=== PATIENT | female | born 1990 | race Caucasian/White ===

== ENCOUNTER → 2018-07-27 11:10 | Outpatient (CLI) | payer BC, SELFPAY ==
[2018-07-27 15:33] LABS: Chlamydia Trachomatis by PCR Negative (Negative); Neisserai gonorrhoeae by PCR Negative (Negative)
[2018-07-27 15:34] LABS: Probe Check PASS; Sample Adequacy Control PASS; Specimen Processing Control PASS
[2018-07-29 13:47] LABS: HPV Reflexed? NOT INDICATED
== END ==
PROVIDERS: Visit Provider Obstetrics & Gynecology
DX: Z12.4 Encounter for screening for malignant neoplasm of cervix (principal); Z11.3 Encounter for screening for infections with a predominantly sexual mode of transmission
CPT/HCPCS: 87491; 87591; 88175; G0145

== ENCOUNTER → 2018-08-10 11:35 | Outpatient (CLI) | payer BC, SELFPAY ==
[2018-08-10 12:11] LABS: Absolute Lymphocyte Count 2.18 X10^3/ul (0.83-4.51); Absolute Neutrophil Count 6.4 X10^3/uL (2.0-7.7); Basophil# 0.01 X10^3/uL; Basophil% 0.1 % (0-1); Eosinophil# 0.08 X10^3/uL; Eosinophils% 0.8 % (0-5); Hematocrit 36.8 % (37-47); Hemoglobin 12.7 g/dl (12.0-15.0); Lymphocyte # 2.18 X10^3/ul (4.0); Mean Corp Hgb Conc 34.5 g/gl (32-36); Mean Corpuscular Hgb 30.5 pg (27.0-32.0); Mean Corpuscular Volume 88.5 fL (81-99); Mean Platelet Vol. 9.5 fl (6.2-12.0); Monocyte# 0.83 X10^3/uL; Monocyte% 8.7 % (0-10); Neutrophil # 6.38 X10^3/uL (2.7-7.7); Neutrophil % 67.3 % (47-70); Platelet Count 175 K/mm3 (150-450); RBC Distribution Width CV 12.5 % (11.6-14.6); RBC Distribution Width SD 40.3 fl (35.1-43.9); Red Blood Count 4.16 M/mm3 (4.2-5.4); White Blood Count 9.5 K/mm3 (4.4-11.0)
[2018-08-10 12:13] LABS: POSITIVE COUNT NO; POSITIVE DIFFERENTIAL NO; POSITIVE MORPHOLOGY NO
[2018-08-10 12:49] LABS: Thyroid Stim Hormone (TSH) 0.76 uIU/mL (0.358-3.74)
[2018-08-10 13:27] LABS: HIV - WCH Non-Reactive (Nonreactive)
[2018-08-10 13:37] LABS: Color, Urine Yellow (Yellow); Glucose, Dipstick Normal (Normal); Ketone-Dipstick Negative (Negative); Leukocyte Esterase-Dipstick 100 /ul (Negative); Nitrite-Dipstick Negative (Negative); Occult Blood-Urine 10 /ul (Negative); Protein-Dipstick 15 mg/dl (Negative); Urine Bilirubin Dipstick Negative (Negative); Urine Clarity Sl. Cloudy (Clear); Urine Urobilinogen Normal (Normal)
[2018-08-10 13:43] LABS: COTININE Drug Screen Negative (<200 ng/mL)
[2018-08-10 13:50] LABS: Amphetamine Urine VISTA NEGATIVE (<1000 ng/mL); Barbiturate Urine VISTA NEGATIVE (< 200 ng/mL); Benzodiazepine Urine VISTA NEGATIVE (< 200 ng/mL); Cocaine Urine VISTA NEGATIVE (< 300 ng/mL); Ecstacy Urine VISTA NEGATIVE (< 500 ng/mL); Methadone Urine VISTA NEGATIVE (< 300 ng/mL); PCP Urine VISTA NEGATIVE (< 25 ng/mL); THC Urine VISTA NEGATIVE (< 50 ng/mL); Vista UDS pH Range 5
[2018-08-11 10:53] LABS: HEPATITIS B SURFACE AG Negative (Negative); Hep C Antibodies <0.1 s/co ratio (0.0-0.9)
[2018-08-14 01:58] LABS: Prenatal RPR NONREACTIVE (NONREACTIVE)
== END ==
PROVIDERS: Visit Provider Obstetrics & Gynecology
DX: Z34.81 Encounter for supervision of other normal pregnancy, first trimester (principal)
CPT/HCPCS: 36415; 80307; 81002; 84443; 85025; 86703; 86762; 86803; 87340

== ENCOUNTER → 2018-12-22 11:17 | Outpatient (CLI) | payer BC, SELFPAY ==
[2018-12-22 13:41] LABS: Hematocrit 34.4 % (37-47); Hemoglobin 11.6 g/dl (12.0-15.0); Mean Corp Hgb Conc 33.7 g/gl (32-36); Mean Corpuscular Hgb 30.9 pg (27.0-32.0); Mean Corpuscular Volume 91.5 fL (81-99); Mean Platelet Vol. 9.6 fl (6.2-12.0); Platelet Count 172 K/mm3 (150-450); Red Blood Count 3.76 M/mm3 (4.2-5.4); White Blood Count 11.4 K/mm3 (4.4-11.0)
[2018-12-22 13:42] LABS: Scan Indicated on CBC? Y/N NO
[2018-12-22 14:00] LABS: Glucose Challenge Gest 1H 50g 142 mg/dL (70-140)
== END ==
PROVIDERS: Visit Provider Obstetrics & Gynecology
DX: Z34.83 Encounter for supervision of other normal pregnancy, third trimester (principal)
CPT/HCPCS: 36415; 82950; 85027; 86850

== ENCOUNTER → 2018-12-24 06:48 | Outpatient (CLI) | payer BC, SELFPAY ==
[2018-12-24 08:09] LABS: Glucose GTT-Gestation. Fasting 75 mg/dL (<105)
[2018-12-24 09:15] LABS: Glucose GTT-Gestational 1 Hr 121 mg/dL (<190)
[2018-12-24 10:29] LABS: Glucose GTT-Gestational 2 Hr 106 mg/dL (<165)
[2018-12-24 11:03] LABS: Glucose GTT-Gestational 3 Hr 82 L (<145)
== END ==
PROVIDERS: Referring Provider Obstetrics & Gynecology; Visit Provider Obstetrics & Gynecology
DX: O99.810 Abnormal glucose complicating pregnancy (principal); Z3A.00 Weeks of gestation of pregnancy not specified
CPT/HCPCS: 36415; 82951; 82952

== ENCOUNTER → 2019-02-17 14:00 | Outpatient (CLI) | payer BC, SELFPAY | PROVIDERS: Visit Provider Obstetrics & Gynecology | DX: Z34.83 Encounter for supervision of other normal pregnancy, third trimester (principal); Z36.85 Encounter for antenatal screening for Streptococcus B | CPT/HCPCS: 87081 ==

== ENCOUNTER 2019-03-12 03:12 | Inpatient (IN) | payer BC, SELFPAY ==
[2019-03-12 00:38] VITALS: BMI 34.3
[2019-03-12] MEDS: Lactated Ringers 1,000 ML 50 ML IV ×4 (03:37→14:31)
[2019-03-12 03:57] LABS: Absolute Lymphocyte Count 3.07 X10^3/ul (0.83-4.51); Absolute Neutrophil Count 12.6 X10^3/uL (2.0-7.7); Basophil# 0.02 X10^3/uL; Basophil% 0.1 % (0-1); Eosinophil# 0.14 X10^3/uL; Eosinophils% 0.8 % (0-5); Hematocrit 33.7 % (37-47); Hemoglobin 11.6 g/dl (12.0-15.0); Lymphocyte # 3.07 X10^3/ul (4.0); Lymphocyte % 17.5 % (19-41); Mean Corp Hgb Conc 34.4 g/gl (32-36); Mean Corpuscular Hgb 30.3 pg (27.0-32.0); Mean Platelet Vol. 10.3 fl (6.2-12.0); Monocyte# 1.61 X10^3/uL; Monocyte% 9.2 % (0-10); Neutrophil # 12.57 X10^3/uL (2.7-7.7); Neutrophil % 71.5 % (47-70); Platelet Count 173 K/mm3 (150-450); RBC Distribution Width CV 13.2 % (11.6-14.6); RBC Distribution Width SD 40.3 fl (35.1-43.9); Red Blood Count 3.83 M/mm3 (4.2-5.4); White Blood Count 17.6 K/mm3 (4.4-11.0)
[2019-03-12] MEDS: Nalbuphine 10 MG/ML Ampul IV ×2 (03:57→07:05)
--- NOTE | 2019-03-12 03:59 | HP.PCM_ITS ---
History and Physical Date of Admission: 03/12/19 OB HISTORY AND PHYSICAL EXAMINATION History of this : 28 yo female Ab0 with EDC 03/13/2019 by Ultrasound, presents to Labor and Delivery at 39 6/7 wk with CC of [facility]. . care remarkable for - 1.) Abnormal glucola -- 3 hr GTT wnl. 2.) Severe heartburn 3.) O NEG Pertinent Past Medical History: Negative. Allergies: No Known Allergies Medications: During - Vitamin tablet; Prilosec OTC 20 mg tablet,delayed release Review of Systems: Contractions PHYSICAL EXAMINATION General Appearence: 28 yo female in no acute distress Vital Signs: AF, VSS Heart: RRR without rubs or gallops Lungs: CTA x 2 Breasts: deferred Abdomen: gravid Pelvis: Cervix: 3-4 / 75/ -3 Presentation: cephalic Station: Fetus: Size: AGA Movement: present Heart: 120s with min to avg variability and small accels. UCs q 5-7 mins Impression /Plan: Intrauterine . 39 /67 wk EGA presents in early laobr. requesting pain meds. Admit. Offer epidural, nitrous, IV narcotic prn for pain. Anticipate vaginal delivery. BP slightly high PIH labs to be drawn. See Progress Notes for Changes: Physician's Signature: Date:
[2019-03-12 04:00] LABS: Differential Indicated SCAN CRITERIA MET; POSITIVE COUNT NO; POSITIVE DIFFERENTIAL YES; POSITIVE MORPHOLOGY NO
[2019-03-12 04:05] LABS: Prothrombin Time (Protime)PT. 13.3 SECONDS (11.7-14.9)
[2019-03-12 04:06] LABS: Partial Thromboplast Time 26.7 Seconds (24.1-36.2)
[2019-03-12 04:09] LABS: AST(SGOT) 30 U/L (15-37); Alanine Aminotransfer ALT/SGPT 30 U/L (13-56); Creatinine, Serum 0.74 mg/dL (0.55-1.02); EST Glomerular Filtration Rate 98 mL/min (>60); Est Glom Filt Rate - Afr Amer 119 mL/min (>60); Estimated Creatinine Clearance 96.86 ml/min; Uric Acid 6.4 mg/dL (2.6-6.0)
[2019-03-12 04:25] LABS: Differential Comment SCANNED
--- NOTE | 2019-03-12 04:55 | OB.TRI.PN_ITS ---
Progress Notes Date of Service: 03/12/19 Progress Note: [facility] labs reviewed. Frontal DEE. Tylenol for DEE Begin Pitocin prn for augmentation of labor. Prot/Cr ratio to be sent. Laboratory Studies: Laboratory Tests 03/12/19 03/12/19 03/12/19 Range/Units 03:34 03:34 03:34 WBC 17.6 H (4.4-11.0) K/mm3 RBC 3.83 L (4.2-5.4) M/mm3 Hgb 11.6 L (12.0-15.0) g/dl Hct 33.7 L (37-47) % MCV 88.0 (81-99) fL MCH 30.3 (27.0-32.0) pg MCHC 34.4 (32-36) g/gl RDW 13.2 (11.6-14.6) % RDW Differential 40.3 (35.1-43.9) fl Plt Count 173 (150-450) K/mm3 MPV 10.3 (6.2-12.0) fl Immature Gran % (Auto) 0.900 (0.0-0.9) % Neut % (Auto) 71.5 H (47-70) % Lymph % (Auto) 17.5 L (19-41) % [place] % (Auto) 9.2 (0-10) % Eos % (Auto) 0.8 (0-5) % Baso % (Auto) 0.1 (0-1) % Absolute Neuts (auto) 12.6 H (2.0-7.7) X10^3/uL Absolute Lymphs (auto) 3.07 (0.83-4.51) X10^3/ul Total Counted Not Reportable Differential Comment SCANNED PT 13.3 (11.7-14.9) SECONDS INR 1.0 APTT 26.7 (24.1-36.2) Seconds Creatinine 0.74 (0.55-1.02) mg/dL Estim Creat Clear Calc 96.86 ml/min Est GFR (MDRD) Af Amer 119 (>60) mL/min Est GFR (MDRD) Non-Af 98 (>60) mL/min Uric Acid 6.4 H (2.6-6.0) mg/dL AST 30 (15-37) U/L ALT 30 (13-56) U/L
[2019-03-12 05:25] LABS: Protein, Urine (Random) 23.1 mg/dL (<11.9); Protein:Creat Ratio 171 mg/g CRE (0-200)
--- NOTE | 2019-03-12 06:11 | OB.TRI.PN_ITS ---
Progress Notes Date of Service: 03/12/19 Progress Note: LABOR PROGRESS NOTE 39 6/7 labor Uncomfortable and requesting something for pain. Nubain not due. she is not sure what she wants to do for pain. Declines epidural for now. OK with nitrous oxide AVSS BP slightly elevated EFM 120s avg variability Small Accels noted. UCs poor metal pickling equipment operator. Breathing through these CX: last checked at 0515 per RN. 5.5/80/-2 IBOW A/P: 39 6/7 wk labor. Progress noted from admission 3-4 cm. Pitocin not needed at this point. Continue labor. Reviewed options for pain relief in labor. Plans trial of nitrous next. Laboratory Studies: Laboratory Tests 3 03/12/19 03/12/19 03/12/19 Range/Units 05:05 04:15 03:34 WBC (4.4-11.0) K/mm3 RBC (4.2-5.4) M/mm3 Hgb (12.0-15.0) g/dl Hct (37-47) % MCV (81-99) fL MCH (27.0-32.0) pg MCHC (32-36) g/gl RDW (11.6-14.6) % RDW Differential (35.1-43.9) fl Plt Count (150-450) K/mm3 MPV (6.2-12.0) fl Immature Gran % (Auto) (0.0-0.9) % Neut % (Auto) (47-70) % Lymph % (Auto) (19-41) % [place] % (Auto) (0-10) % Eos % (Auto) (0-5) % Baso % (Auto) (0-1) % Absolute Neuts (auto) (2.0-7.7) X10^3/uL Absolute Lymphs (auto) (0.83-4.51) X10^3/ul Total Counted Differential Comment PT (11.7-14.9) SECONDS INR APTT (24.1-36.2) Seconds Creatinine 0.74 (0.55-1.02) mg/dL Estim Creat Clear Calc 96.86 ml/min Est GFR (MDRD) Af Amer 119 (>60) mL/min Est GFR (MDRD) Non-Af 98 (>60) mL/min Uric Acid 6.4 H (2.6-6.0) mg/dL AST 30 (15-37) U/L ALT 30 (13-56) U/L U Random Total Protein 23.1 H (<11.9) mg/dL Urine Creatinine 135.00 (NO RANGE EST.) mg/dL Protein/Creatinin Ratio 171 (0-200) mg/g CRE Blood Type O NEGATIVE Antibody Screen NEGATIVE 03/12/19 03/12/19 Range/Units 03:34 03:34 WBC 17.6 H (4.4-11.0) K/mm3 RBC 3.83 L (4.2-5.4) M/mm3 Hgb 11.6 L (12.0-15.0) g/dl Hct 33.7 L (37-47) % MCV 88.0 (81-99) fL MCH 30.3 (27.0-32.0) pg MCHC 34.4 (32-36) g/gl RDW 13.2 (11.6-14.6) % RDW Differential 40.3 (35.1-43.9) fl Plt Count 173 (150-450) K/mm3 MPV 10.3 (6.2-12.0) fl Immature Gran % (Auto) 0.900 (0.0-0.9) % Neut % (Auto) 71.5 H (47-70) % Lymph % (Auto) 17.5 L (19-41) % [place] % (Auto) 9.2 (0-10) % Eos % (Auto) 0.8 (0-5) % Baso % (Auto) 0.1 (0-1) % Absolute Neuts (auto) 12.6 H (2.0-7.7) X10^3/uL Absolute Lymphs (auto) 3.07 (0.83-4.51) X10^3/ul Total Counted Not Reportable Differential Comment SCANNED PT 13.3 (11.7-14.9) SECONDS INR 1.0 APTT 26.7 (24.1-36.2) Seconds Creatinine (0.55-1.02) mg/dL Estim Creat Clear Calc ml/min Est GFR (MDRD) Af Amer (>60) mL/min Est GFR (MDRD) Non-Af (>60) mL/min Uric Acid (2.6-6.0) mg/dL AST (15-37) U/L ALT (13-56) U/L U Random Total Protein (<11.9) mg/dL Urine Creatinine (NO RANGE EST.) mg/dL Protein/Creatinin Ratio (0-200) mg/g CRE Blood Type Antibody Screen
[2019-03-12] MEDS: Acetaminophen 325 MG Tablet PO ×2 (06:39→14:42)
[2019-03-12] MEDS: Ondansetron 4 MG/2 ML Vial IV (08:46)
[2019-03-12] MEDS: fentaNYL-bupivacaine (epidural) 100 ML BAG EPIDURAL ×2 (09:20→14:10)
[2019-03-12] MEDS: Oxytocin 30 units/NS 500 ml 30 UNITS/500 ML IV.SOLN 334 UNITS IV (15:31)
--- NOTE | 2019-03-12 15:42 | PCM.OPRPT ---
Vaginal Delivery Maternal Presentation: Active Labor Method of Induction: Amniotomy Amniotic Membrane Rupture Type: Artificial Amniotic Fluid Description: Moderate meconium Final MOSHE: 03/13/19 Final MOSHE Source: US <20 weeks Gestational age: 39 Weeks and 6 Days doctor who attended delivery (if requested by OB): Cosme Borrego - Moderate MSF Date of Procedure: 03/12/19 Pre-Operative Diagnosis: IUP Post-Operative Diagnosis: IUP Surgery/ Procedure Performed: Spontaneous Vaginal Delivery Type of Anesthesia: Epidural Description of Procedure: Spontaneous vaginal delivery of a viable female infant with Apgars of 8/9 from an occiput anterior presentation with moderately thick meconium fluid and moderately stained placental membranes with a three-vessel umbilical cord. No episiotomy. First-degree midline laceration repaired with 3-0 Rapide suture under epidural. Sponges okay. Delivery physician: Brandon Adams MD. Presentation: Vertex Placental Delivery Description: Spontaneous Placenta Disposition: [facility] Cord Vessel Description: 3 Vessels Cord Gases drawn per routine: ABG Cord Entanglement: None Estimated Blood Loss: 250 cc A gender: Female (1 minute): 8 (5 minute): 9 Episiotomy Description: None Laceration: Midline, 1st degree Medications given after delivery: IV Pitocin Complications: None
[2019-03-12] MEDS: Oxytocin 30 units/NS 500 ml 30 UNITS/500 ML IV.SOLN 167 UNITS IV (16:01)
[2019-03-12] MEDS: 0.9% Saline Lock 10 ML Syringe IV (17:21)
[2019-03-12 20:03] VITALS: BP 125/65; PULSE 64; RESP 16; TEMP 37.2; O2SAT 97
[2019-03-13 02:00] VITALS: BP 119/68; PULSE 96; RESP 18; TEMP 37.2; O2SAT 98
[2019-03-13 03:59] VITALS: BP 123/65; PULSE 89; RESP 18; TEMP 36.9; O2SAT 96
[2019-03-13] MEDS: Ibuprofen 600 MG Tablet PO ×3 (04:12→22:18)
[2019-03-13 07:30] VITALS: BP 120/60; PULSE 78; RESP 16; TEMP 36.4
[2019-03-13] MEDS: Acetaminophen 500 MG Tablet 1000 MG PO (07:50)
--- NOTE | 2019-03-13 10:14 | PN.OBGYN_ITS ---
Subjective: Patient without complaints. Getting instruction on breast-feeding. Minimal vaginal bleeding. Wants to go home later today if baby is able to be d ischarged. - Physical Exam Vital Signs Temp Pulse Resp BP Pulse Ox 97.6 F L 78 16 120/60 96 03/13/19 07:30 03/13/19 07:30 03/13/19 07:30 03/13/19 07:30 03/13/19 03:59 Oxygen Delivery Method Room Air Weight: 200 lb Body Mass Index (BMI) 34.3 Intake and Output for Last 24 Hours 03/11/19 03/12/19 03/13/19 23:59 23:59 23:59 Intake Total 3092 / 3092 Output Total 1050 / 1050 Balance 2041 / 2041 Laboratory Tests Past 24 Hrs 03/12/19 18:15 Screen NEGATIVE Baby's Blood Type A POSITIVE Baby's LEIF NEGATIVE Medical Necessity - Tobacco Use Smoking Status: Never smoker Assessment/Plan Doing well day #1 status post routine spontaneous vaginal delivery. Will discharge to home if baby is able to be discharged.
[2019-03-13 12:50] VITALS: BP 106/67; PULSE 68; RESP 18; TEMP 36.2
[2019-03-13 15:45] VITALS: BP 116/67; PULSE 82; RESP 16; TEMP 36.3
[2019-03-13 20:00] VITALS: BP 116/72; PULSE 74; RESP 17; TEMP 36.6
[2019-03-14] VITALS: PULSE 84; RESP 17
[2019-03-14 06:00] VITALS: PULSE 70; RESP 16
[2019-03-14 08:30] VITALS: BP 134/80; PULSE 78; RESP 18; TEMP 36.4
[2019-03-14] MEDS: Ibuprofen 600 MG Tablet PO (08:44)
--- NOTE | 2019-03-14 09:55 | PCM.PN.OB ---
Subjective: Patient without complaints. Breast-feeding going well. Ready to go home today. - Physical Exam Vital Signs Temp Pulse Resp BP Pulse Ox 97.9 F 70 16 116/72 96 03/13/19 20:00 03/14/19 06:00 03/14/19 06:00 03/13/19 20:00 03/13/19 03:59 Oxygen Delivery Method Room Air Weight: 200 lb Body Mass Index (BMI) 34.3 Intake and Output for Last 24 Hours 03/12/19 03/13/19 03/14/19 23:59 23:59 23:59 Intake Total 3092 / 3092 Output Total 1050 / 1050 Balance 2041 / 2041 Medical Necessity - Tobacco Use Smoking Status: Never smoker Assessment/Plan Doing well. Will release to home with routine instructions.
--- NOTE | 2019-03-14 11:19 | PCM.DCVAG ---
Discharge Diet: No Restrictions Discharge Activity: May Shower, May Take a Tub Bath May resume sexual activity in: 4-6 weeks Additional Activity Instructions:: Nothing in the vagina for 4-6 weeks. You may return to work/school in 6 weeks. Call your doctor if you observe: Fever of 101 or Higher, Inability to urinate, Inability to have a bowel movement, Using more than one pad per hour Additional Instructions: If you experience any of the following, contact your healthcare provider. Bleeding that soaks a pad every hour for 2 hours Fever 100.4 or higher Unrelieved incision or abdominal pain Swelling, redness, discharge or bleeding from your incision or episiotomy site Your incision begins to separate Problems urinating (including inability to urinate or burning while urinating). Visual changes Severe headache Flu-like symptoms Pain or redness in one of both of your breasts Pain, warmth, tenderness or swelling in your legs, especially the calf area Frequent nausea and vomiting Symptoms of depression or anxiety If you experience any of the following, call 911 or go to the nearest Emergency Room. Chest pain Problems breathing Seizure activity Partial or complete paralysis of a body part, slurred speech, weakness or drooping of the face, or a sudden inability to walk or hold your balance Allergies/Adverse Reactions: Allergies No Known Allergies Allergy (Verified 03/12/19 00:43) Medications to take at Discharge Omeprazole 1 tab PO DAILY 03/12/19 Prenatabs FA 1 tab PO DAILY 03/12/19 Vitamin D 1 tab PO DAILY 03/12/19 Please Follow Up With: Brandon Adams MD - [phone] When: Call to make an appointment with your doctor in 6 weeks. Primary Care Physician: Care Physician,No Primary [Primary Care Provider] - Test Results: Test results from this visit will be discussed in further detail at your follow-up appointment, if applicable.
--- NOTE | 2019-03-14 11:20 | DCINST_ITS ---
Discharge Diet: No Restrictions Discharge Activity: May Shower, May Take a Tub Bath May resume sexual activity in: 4-6 weeks Additional Activity Instructions:: Nothing in the vagina for 4-6 weeks. You may return to work/school in 6 weeks. Call your doctor if you observe: Fever of 101 or Higher, Inability to urinate, Inability to have a bowel movement, Using more than one pad per hour Additional Instructions: If you experience any of the following, contact your healthcare provider. * Bleeding that soaks a pad every hour for 2 hours * Fever 100.4 or higher * Unrelieved incision or abdominal pain * Swelling, redness, discharge or bleeding from your incision or episiotomy site * Your incision begins to separate * Problems urinating (including inability to urinate or burning while urinating). * Visual changes * Severe headache * Flu-like symptoms * Pain or redness in one of both of your breasts * Pain, warmth, tenderness or swelling in your legs, especially the calf area * Frequent nausea and vomiting * Symptoms of depression or anxiety If you experience any of the following, call 911 or go to the nearest Emergency Room. * Chest pain * Problems breathing * Seizure activity * Partial or complete paralysis of a body part, slurred speech, weakness or drooping of the face, or a sudden inability to walk or hold your balance Allergies/Adverse Reactions: Allergies No Known Allergies Allergy (Verified 03/12/19 00:43) Medications to take at Discharge Omeprazole 1 tab PO DAILY 03/12/19 Prenatabs FA 1 tab PO DAILY 03/12/19 Vitamin D 1 tab PO DAILY 03/12/19 Please Follow Up With: Brandon Adams MD - [phone] When: Call to make an appointment with your doctor in 6 weeks. Primary Care Physician: Care Physician,No Primary [Primary Care Provider] - Test Results: Test results from this visit will be discussed in further detail at your follow- up appointment, if applicable.
--- NOTE | 2019-03-16 09:32 | NURSING ---
Late entry/documentation of Delivery Record. Not completed day of delivery. 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 entry completed by A lala with testing tech assistance
== END 2019-03-14 12:25 | disposition home or self-care (01) | DRG 807 ==
LOC: WPOUT 03:14
PROVIDERS: Obstetrics & Gynecology; Admitting Provider Obstetrics & Gynecology; Referring Provider Obstetrics & Gynecology; Visit Provider Obstetrics & Gynecology
DX: O70.0 First degree perineal laceration during delivery (principal); Z37.0 Single live birth; O77.0 Labor and delivery complicated by meconium in amniotic fluid; Z3A.39 39 weeks gestation of pregnancy
CPT/HCPCS: 59025; 59050; 82565; 82570; 84156; 84450; 84460; 84550; 85025; 85461; 85610; 85730; 86850; 86900; 90384; 99218; J7120; A4216; G0378; J2405; J2790

== ENCOUNTER 2022-09-07 21:42 | Emergency (ER) | payer OTHER, SELFPAY ==
[2022-09-07 21:43] VITALS: BP 162/86; PULSE 63; RESP 22; TEMP 36.1; O2SAT 100; BMI 32.3
[2022-09-08 00:07] VITALS: BP 149/89; PULSE 83; RESP 16; O2SAT 100
--- NOTE | 2022-09-08 00:08 | NURSING ---
pt denies chest pain at this time.
--- NOTE | 2022-09-08 00:54 | EKG12_ITS ---
Test Reason : CP Blood Pressure : / mmHG Vent. Rate : 052 BPM Atrial Rate : 052 BPM P-R Int : 164 ms QRS Dur : 082 ms QT Int : 466 ms P-R-T Axes : 042 041 066 degrees QTc Int : 433 ms Sinus bradycardia Otherwise normal ECG Confirmed by ANY DE GUZMAN MD ([id number]), electronic news gathering editor MINGO SAENZ ([id number]) on 09/09/2022 12:02:18 PM Referred By: ER Physician Confirmed By:ANY DE GUZMAN MD
--- NOTE | 2022-09-08 00:55 | EDS_ITS ---
HPI History of Present Illness Chief Complaint: Chest Pain Informant: patient Onset/Context/Timing Onset: Yesterday Activity at onset: gradual Quality: Positive for Heaviness Location: Substernal Current Severity: Gone Maximum Severity: Severe Narrative Narrative: Patient present secondary to chest pain. She states around 6 PM she had over to her sister's house. She had some central chest pressure that she thought was reflux. Pain continued to worsen over the next several hours and wrapped under each breast. She states she difficulty breathing. She vomited and then felt better. PFSH PFSH Medical History no medical history no medical history Home Medications Omeprazole 1 tab PO DAILY Check with primary doctor 03/12/19 [History Last Taken 03/11/19 15:00] Prenatabs FA 1 tab PO DAILY Check with primary doctor 03/12/19 [History Last Taken 03/11/19 14:00] Vitamin D 1 tab PO DAILY 03/12/19 [History Last Taken 03/11/19 14:00] omeprazole 20 mg capsule,delayed release 20 mg PO DAILY 4 weeks #28 caps 09/08/22 [Rx Last Taken Unknown] Allergy/AdvReac Type Severity Reaction Status Date / Time No Known Allergies Allergy Verified 03/12/19 00:43 Family History other other (Heart disease in grandfather.) Social History Smoking Status: Never smoker ROS ROS ED Constitutional Constitutional ED: Denies chills or fever(s) Eyes Eyes: Denies change in vision or discharge from eye(s) ENT ENT ED: Denies discharge from eye(s), rhinorrhea or sore throat Cardiovascular Cardiovascular: Reports chest pain; Denies palpitations Respiratory/Chest Respiratory/Chest: Reports dyspnea; Denies cough Gastrointestinal Gastrointestinal: Reports nausea and vomiting; Denies abdominal pain or diarrhea Genitourinary Genitourinary ED: Denies dysuria Musculoskeletal Musculoskeletal: Denies back pain or extremity pain Integumentary Denies Abrasions or rash Neurologic Neurologic: Denies headache(s) or weakness Allergic/Immunologic Allergic/Immunologic ED: Denies lip swelling or urticaria EXAM Physical Exam Const Vital Signs: 09/07/22 21:43 09/07/22 21:43 09/08/22 00:07 Temperature 97.0 F L 97.0 F L Temperature Source Temporal Temporal Pulse Rate 63 63 83 Respiratory Rate 22 H 22 H 16 Respiratory Effort Respiratory Pattern Blood Pressure 162/86 H 162/86 H 149/89 H Blood Pressure Mean 111 111 109 Pulse Ox 100 100 100 Oxygen Delivery Method Room Air Room Air Room Air 09/08/22 00:07 09/08/22 02:40 Temperature Temperature Source Pulse Rate 61 Respiratory Rate 18 Respiratory Effort Normal Non-Labored Respiratory Pattern Normal Blood Pressure 132/78 H Blood Pressure Mean 96 Pulse Ox 96 Oxygen Delivery Method Room Air Positive well nourished and well developed General Appearance ED: well developed HEENT Reports normocephalic and head/scalp atraumatic Eyes PERRL and EOMs intact bilaterally Neck supple Chest Wall inspection of chest normal and palpation of chest normal Resp normal respiratory effort and clear to auscultation bilaterally Cardio regular rate and regular rhythm GI normal to inspection, nondistended, normoactive bowel sounds Palpation: soft Extremity normal to inspection Neuro oriented x3 and no sensory deficits noted Sensorium / Orientation: alert Motor Exam: strength 5/5 throughout Psych mental status grossly normal Skin no rashes or lesions noted Heart Score History: Slightly/Non-Suspicious ECG: Normal Age: </= 45 years Risk Factors: No Risk Factors Troponin: </= Normal Limit Score: 0 MDM MDM MDM Narrative Medical decision making narrative: EKG, chest x-ray, lab work obtained. Lab Data Attestation: I reviewed the patient's lab results. Labs: Laboratory Results - last 24 hr 09/08/22 09/08/22 01:19 01:19 WBC 13.5 H RBC 4.14 L Hgb 11.6 L Hct 35.4 L MCV 85.5 MCH 28.0 MCHC 32.8 RDW Std Deviation 38.5 RDW Coeff of [place] 12.5 Plt Count 271 MPV 9.6 Immature Gran % (Auto) 0.400 Neut % (Auto) 76.1 H Lymph % (Auto) 16.8 L [place] % (Auto) 6.4 Eos % (Auto) 0.1 Baso % (Auto) 0.2 Absolute Neuts (auto) 10.3 H Absolute Lymphs (auto) 2.27 Nucleated RBC % 0 Sodium 138 Potassium 5.1 Chloride 109 H Carbon Dioxide 26.0 Anion Gap 3 L BUN 11 Creatinine 0.96 Estim Creat Clear Calc 69.59 Est GFR (MDRD) Af Amer 86 Est GFR (MDRD) Non-Af 71 BUN/Creatinine Ratio 11.4 Glucose 114 H Calcium 9.5 Troponin I High Sens 12 Radiography Chest X-Ray - ED: 2 View, Read by ED Physician, Normal, Heart, Lungs and Mediastinum Diagnostic Testing: Clinical Impression(s) from Imaging Studies Chest X-Ray 09/08/22 02:30 IMPRESSION: No radiographic evidence of acute cardiopulmonary disease. Electronically Signed: Stefan Meehan MD at 2:45 EST , EKG Initial EKG: Attestation: I personally reviewed and interpreted this EKG as follows: Interpretation: Sinus Bradycardia (Sinus bradycardia 52 bpm. No acute ischemia.) Treatment and Re-Evaluation Narrative: Patient is remained pain-free throughout her ED stay. Lab work is unremarkable with a normal troponin. Chest x-ray per my interpretation is unremarkable. Radiology interpretation reviewed and agrees. EKG reveals no ischemia. I discussed with the patient that my suspicion is that she had spasm of her lower esophageal sphincter as she was starting to feel some reflux prior to the more severe pain. I will write her prescription for Prilosec. Return instructions given. Discharge Plan Triage Chief Complaint: Chest Pain ED Provider: Michelle Sen Dx/Rx/DC Orders Clinical Impression: Atypical chest pain Instructions: ED Chest Pain, Noncardiac Prescriptions: New omeprazole 20 mg capsule,delayed release(DR/EC) 20 mg PO DAILY 28 Days Qty: 28 0RF No Action Omeprazole 1 tab PO DAILY Prenatabs FA 1 tab PO DAILY Vitamin D 1 tab PO DAILY Primary Care Provider: Care Physician,No Primary Referrals: Tyra Fuentes MD [Med Staff - Baggage Checker] - As Needed Care Physician,No Primary [Primary Care Provider] - Disposition Disposition: Home, Self Care
[2022-09-08 01:25] LABS: Absolute Lymphocyte Count 2.27 X10^3/uL (0.83-4.51); Absolute Neutrophil Count 10.3 X10^3/uL (2.0-7.7); Basophil# 0.03 X10^3/uL; Basophil% 0.2 % (0-1); Eosinophil# 0.01 X10^3/uL; Eosinophils% 0.1 % (0-5); Hematocrit 35.4 % (37-47); Hemoglobin 11.6 g/dL (12.0-15.0); Lymphocyte # 2.27 X10^3/ul (0.83-4.51); Lymphocyte % 16.8 % (19-41); Mean Corp Hgb Conc 32.8 g/dL (32-36); Mean Corpuscular Volume 85.5 fL (81-99); Mean Platelet Vol. 9.6 fl (6.2-12.0); Monocyte# 0.86 X10^3/uL; Monocyte% 6.4 % (0-10); NRBC Flagged by Analyzer 0 % (0-5); Neutrophil % 76.1 % (47-70); Platelet Count 271 K/mm3 (150-450); RBC Distribution Width CV 12.5 % (11.6-14.6); RBC Distribution Width SD 38.5 fl (35.1-43.9); Red Blood Count 4.14 M/mm3 (4.2-5.4); White Blood Count 13.5 K/mm3 (4.4-11.0)
[2022-09-08 01:44] LABS: Anion Gap 3 (5-15); BUN 11 mg/dL (7-18); BUN/Creat Ratio 11.4 RATIO (10-20); Calcium,Total 9.5 mg/dL (8.5-10.1); Chloride 109 mmol/L (98-107); Creatinine, Serum 0.96 mg/dL (0.55-1.02); EST Glomerular Filtration Rate 71 mL/min (>60); Est Glom Filt Rate - Afr Amer 86 mL/min (>60); Estimated Creatinine Clearance 69.59 ml/min; Glucose 114 mg/dL (74-106); Potassium 5.1 mmol/L (3.5-5.1); Sodium Level 138 mmol/L (136-145); Troponin-I HS 12 pg/mL (3.0-54.0)
--- NOTE | 2022-09-08 02:30 | RAD_ITS ---
EXAM: XR CHEST, 2 VIEWS CLINICAL INDICATION: cp TECHNIQUE: Frontal and lateral views of the chest. This report was created using [employer] report generation technology. COMPARISON: None. FINDINGS: LUNGS AND PLEURAL SPACES: Unremarkable. No consolidation or edema. No pneumothorax. No effusion. HEART: Unremarkable. Cardiac silhouette not enlarged. MEDIASTINUM: Central airways and mediastinal contour are unremarkable. BONES/JOINTS: Unremarkable. SOFT TISSUES: Unremarkable. RAD/Chest PA and Lateral IMPRESSION: No radiographic evidence of acute cardiopulmonary disease. Electronically Signed: Stefan Meehan MD at 2:45 EST ,
[2022-09-08 02:40] VITALS: BP 132/78; PULSE 61; RESP 18; O2SAT 96
== END 2022-09-08 03:45 | disposition home or self-care (01) ==
PROVIDERS: Emergency Provider Emergency Medicine; Visit Provider Emergency Medicine
DX: R07.89 Other chest pain (principal)
CPT/HCPCS: 71046; 80048; 84484; 85025; 93005; 99283; A4216

== ENCOUNTER → 2022-11-12 | Outpatient (CLI) | payer OTHER, SELFPAY ==
[2022-11-12 14:11] LABS: hCG Titer Quant., Serum < 1 mIU/mL (1-3)
[2022-11-12 14:13] LABS: Progesterone Level 0.27 ng/mL (See Comment)
[2022-11-12 14:19] LABS: Estradiol 215.3 pg/mL; Follicle Stimulating Hormone 6.6 mIU/mL; Luteinizing Hormone 30.3 mIU/mL; Prolactin 8.9 ng/mL; T4 Free Direct 0.96 ng/dL (0.76-1.46); Thyroid Stim Hormone (TSH) 1.07 uIU/mL (0.358-3.74)
[2022-11-16 12:08] LABS: Testosterone, Free 0.12 ng/dL (0.10-0.85); Testosterone, Total 12 ng/dL (8-60)
[2022-11-16 14:59] LABS: Testosterone, % Free 0.97 % (0.50-2.80)
[2022-11-18 19:41] LABS: HPV APTIMA, High Risk Negative (Negative)
== END | disposition home or self-care (01) ==
LOC: WOBLAB 12:32
PROVIDERS: Visit Provider Student in an Organized Health Care Education/Training Program
DX: Z12.4 Encounter for screening for malignant neoplasm of cervix (principal); N93.9 Abnormal uterine and vaginal bleeding, unspecified
CPT/HCPCS: 36415; 82670; 83001; 83002; 84144; 84146; 84402; 84403; 84439; 84443; 84702; 87624; 88175; G0145

== ENCOUNTER → 2025-08-05 | Outpatient (CLI) | payer OTHER, SELFPAY ==
--- OUTSIDE RECORDS SUMMARY | 2025-08-05 06:52 | XMS RPT_ITS | CCD ---
Author Organization [facility] InformFormerly [facility] Care Team Providers [facility] Service [facility] Representative Name Role Phone Care Physician, No Primary Primary Care Unava Michelle Zuñiga Attending Unavailable Care Physician, No Primary Primary Care Conchava Mavis Larsen Attending Unavailable Medications Current Medications Medication Drug Class(es) Dates Sig (Normalized) Sig (Original) omeprazole 20 mg delayed release oral capsule (2 sources) Proton Pump Inhibitor Start: 09-08-2022 take 20 mg by mouth once daily Omeprazole Active 20 MG PO DAILY September 08, 2022 12:00am Start: 03-12-2019 take 1 tablet by fozia th once daily Omeprazole Active 1 TABLET PO DAILY March 11, 2019 11:00pm Prenatabs FA (1 source) Start: 03-12-2019 take 1 tablet by fozia th once daily Prenatabs FA Active 1 TABLET PO DAILY March 11, 2019 11:00pm Vitamin D (1 source) Start: 03-12-2019 take 1 tablet by fozia th once daily Vitamin D Active 1 TABLET PO DAILY March 11, 2019 11:00pm Problems Problem Classification Problem Date Documented Da te Episodic/Chronic Nonspecific chest pain (2 sources) Atypical chest pain; Translations: [Other chest pain] Onset: 09-18-2022 Episodic Other female genital disorders (1 source) Abnormal uterine and vaginal bleeding, unspecified; Translations: [Abnormal uterine and vaginal bleeding, unspecified] Onset: 11-12-2022 Chronic Results Test Name Value Interpretation Reference Range Facility PAP IG HPV APTIMA 16/18,45on 11-18-2022 ADEQ Comment Normal . [facility] Comment on above: Order Comment: CYTOL OGY INFORMATION: - CLINICAL INFORMATION: ANNUAL - Non - DATE LMP/MENOPAUSE: 10/25/22 LMP - COLLECTION VIAL: Thin Prep Vial - PHOTOGRAMMETRIC TECHNICIAN SOURCE: CERVICAL/ENDOCERVICAL - COLLECTION TECHNIQUE: BRUSH/SPATULA Specimen Comment: [id number] Specimen Comment: Source.............Cervix;Endocervix Specimen Comment: LMP / Prev Treat...[id number] Specimen Comment: No. of containers..01 ThinPrep Vial Result Comment: Sati sfactory for evaluation. Endocervical and/or squamous metaplastic cells (endocervical component) are present. Performed By: #### L 3100.5055, L3100.5420, L3300.1750, L3100.5310, L7400.0280, L700.8000, L509.4001, L501.9520, L506.0400 #### [facility] [address] [place], [address] COMMENT Comment Normal . [facility] Comment on above: Order Comment: CYTOL OGY INFORMATION: - CLINICAL INFORMATION: ANNUAL - Non - DATE LMP/MENOPAUSE: 10/25/22 LMP - COLLECTION VIAL: Thin Prep Vial - PHOTOGRAMMETRIC TECHNICIAN SOURCE: CERVICAL/ENDOCERVICAL - COLLECTION TECHNIQUE: BRUSH/SPATULA Specimen Comment: [id number] Specimen Comment: Source.............Cervix;Endocervix Specimen Comment: LMP / Prev Treat...[id number] Specimen Comment: No. of containers..01 ThinPrep Vial Result Comment: This liquid based ThinPrep(R) pap test was screened with the use of an image guided system. Performed By: #### L 3100.5055, L3100.5420, L3300.1750, L3100.5310, L7400.0280, L700.8000, L509.4001, L501.9520, L506.0400 #### [facility] [address] [place], [address] DIAG Comment Normal . [facility] Comment on above: Order Comment: CYTOL OGY INFORMATION: - CLINICAL INFORMATION: ANNUAL - Non - DATE LMP/MENOPAUSE: 10/25/22 LMP - COLLECTION VIAL: Thin Prep Vial - PHOTOGRAMMETRIC TECHNICIAN SOURCE: CERVICAL/ENDOCERVICAL - COLLECTION TECHNIQUE: BRUSH/SPATULA Specimen Comment: [id number] Specimen Comment: Source.............Cervix;Endocervix Specimen Comment: LMP / Prev Treat...[id number] Specimen Comment: No. of containers..01 ThinPrep Vial Result Comment: NEGA TIVE FOR INTRAEPITHELIAL LESION OR MALIGNANCY. Performed By: #### L 3100.5055, L3100.5420, L3300.1750, L3100.5310, L7400.0280, L700.8000, L509.4001, L501.9520, L506.0400 #### [facility] [address] [place], [address] HPV APTIMA, HR Negative Normal Negative [facility] Comment on above: Order Comment: CYTOL OGY INFORMATION: - CLINICAL INFORMATION: ANNUAL - Non - DATE LMP/MENOPAUSE: 10/25/22 LMP - COLLECTION VIAL: Thin Prep Vial - PHOTOGRAMMETRIC TECHNICIAN SOURCE: CERVICAL/ENDOCERVICAL - COLLECTION TECHNIQUE: BRUSH/SPATULA Specimen Comment: [id number] Specimen Comment: Source.............Cervix;Endocervix Specimen Comment: LMP / Prev Treat...[id number] Specimen Comment: No. of containers..01 ThinPrep Vial Result Comment: This nucleic acid amplification test detects fourteen high- risk HPV types (16,18,31,33,35,39,45,51,52,56,58,59,66,68) without differentiation. Performed By: #### L 3100.5055, L3100.5420, L3300.1750, L3100.5310, L7400.0280, L700.8000, L509.4001, L501.9520, L506.0400 #### [facility] [address] [place], [address] HPV Eileen Rfx Comment Normal . [facility] Comment on above: Order Comment: CYTOL OGY INFORMATION: - CLINICAL INFORMATION: ANNUAL - Non - DATE LMP/MENOPAUSE: 10/25/22 LMP - COLLECTION VIAL: Thin Prep Vial - PHOTOGRAMMETRIC TECHNICIAN SOURCE: CERVICAL/ENDOCERVICAL - COLLECTION TECHNIQUE: BRUSH/SPATULA Specimen Comment: [id number] Specimen Comment: Source.............Cervix;Endocervix Specimen Comment: LMP / Prev Treat...[id number] Specimen Comment: No. of containers..01 ThinPrep Vial Result Comment: Crit eria not met, HPV Genotype not performed. Performed at: [facility] - [facility] [address] [id number] Reinforcing Metal Worker: Eliane Saeed MD, Phone: [phone] Performed at: =G - [facility] [address] [id number] Reinforcing Metal Worker: Eliane Saeed MD, Phone: [phone] Performed By: #### L 3100.5055, L3100.5420, L3300.1750, L3100.5310, L7400.0280, L700.8000, L509.4001, L501.9520, L506.0400 #### [facility] [address] [place], [address] PAPSMR Comment Normal . [facility] Comment on above: Order Comment: CYTOL OGY INFORMATION: - CLINICAL INFORMATION: ANNUAL - Non - DATE LMP/MENOPAUSE: 10/25/22 LMP - COLLECTION VIAL: Thin Prep Vial - PHOTOGRAMMETRIC TECHNICIAN SOURCE: CERVICAL/ENDOCERVICAL - COLLECTION TECHNIQUE: BRUSH/SPATULA Specimen Comment: [id number] Specimen Comment: Source.............Cervix;Endocervix Specimen Comment: LMP / Prev Treat...[id number] Specimen Comment: No. of containers..01 ThinPrep Vial Result Comment: The Pap smear is a screening test designed to aid in the detection of premalignant and malignant conditions of the uterine cervix. It is not a diagnostic procedure and should not be used as the sole means of detecting cervical cancer. Both false-positive and false-negative reports do occur. Performed By: #### L 3100.5055, L3100.5420, L3300.1750, L3100.5310, L7400.0280, L700.8000, L509.4001, L501.9520, L506.0400 #### [facility] [address] [place], [place], [id number] PERFORM Comment Normal . [facility] Comment on above: Order Comment: CYTOL OGY INFORMATION: - CLINICAL INFORMATION: ANNUAL - Non - DATE LMP/MENOPAUSE: 10/25/22 LMP - COLLECTION VIAL: Thin Prep Vial - PHOTOGRAMMETRIC TECHNICIAN SOURCE: CERVICAL/ENDOCERVICAL - COLLECTION TECHNIQUE: BRUSH/SPATULA Specimen Comment: [id number] Specimen Comment: Source.............Cervix;Endocervix Specimen Comment: LMP / Prev Treat...[id number] Specimen Comment: No. of containers..01 ThinPrep Vial Result Comment: [place], Durability Engineer (ASCP) Performed By: #### L 3100.5055, L3100.5420, L3300.1750, L3100.5310, L7400.0280, L700.8000, L509.4001, L501.9520, L506.0400 #### [facility] [address] [place], [place], [address] COMM . Normal . [facility] Comment on above: Order Comment: CYTOL OGY INFORMATION: - CLINICAL INFORMATION: ANNUAL - Non - DATE LMP/MENOPAUSE: 10/25/22 LMP - COLLECTION VIAL: Thin Prep Vial - PHOTOGRAMMETRIC TECHNICIAN SOURCE: CERVICAL/ENDOCERVICAL - COLLECTION TECHNIQUE: BRUSH/SPATULA Specimen Comment: [id number] Specimen Comment: Source.............Cervix;Endocervix Specimen Comment: LMP / Prev Treat...[id number] Specimen Comment: No. of containers..01 ThinPrep Vial Performed By: #### L 3100.5055, L3100.5420, L3300.1750, L3100.5310, L7400.0280, L700.8000, L509.4001, L501.9520, L506.0400 #### [facility] [address] [place], [address] Testosterone, Total / Freeon 11-16-2022 TESTOSTERONE,%F 0.97 Normal 0.50-2.80 [facility] Comment on above: Order Comment: N Result Comment: Perf ormed at: [facility] [address] [id number] Reinforcing Metal Worker: Faustino Araiza PhD, Phone: [phone] Performed at: [facility] [address] [id number] Reinforcing Metal Worker: Wilner England MD, Phone: [phone] Performed By: #### L 3100.5055, L3100.5420, L3300.1750, L3100.5310, L7400.0280, L700.8000, L509.4001, L501.9520, L506.0400 #### [facility] [address] [place], [address] TESTOSTERONE, F 0.12 ng/dL Normal 0.10-0.85 [facility] Comment on above: Order Comment: N Performed By: #### L 3100.5055, L3100.5420, L3300.1750, L3100.5310, L7400.0280, L700.8000, L509.4001, L501.9520, L506.0400 #### [facility] [address] [place], [address] TESTOSTERONE, T 12 ng/dL Normal 8-60 [facility] Comment on above: Order Comment: N Performed By: #### L 3100.5055, L3100.5420, L3300.1750, L3100.5310, L7400.0280, L700.8000, L509.4001, L501.9520, L506.0400 #### [facility] [address] [place], [address] Estradiolon 11-12-2022 ESTRADIOL 215.3 pg/mL Normal [facility] Comment on above: Order Comment: N Result Comment: NORM AL REFERENCE RANGES FEMALE FOLLICULAR 21.4 - 164.8 pg/mL MID-CYCLE PEAK 49.9 - 367.2 pg/mL LUTEAL 40.2 - 259.0 pg/mL POST-MENOPAUSAL ON MHT <11.0 - 462.1 pg/mL NOT ON MHT <11.0 - 58.3 pg/mL MALE <11.0 - 52.5 pg/mL NOTE: [facility] HAS CONFIRMED THE DRUG FULVETRANT (FASLODEX) MAY CAUSE FALSELY ELEVATED ESTRADIOL RESULTS WHEN USING THIS TEST METHOD. IF PATIENT IS TAKING FULVESTRANT AN ALTERNATIVE METHOD SHOULD BE USED TO DETERMINE ESTRADIOL CONCENTRATION. Performed By: #### L 3100.5055, L3100.5420, L3300.1750, L3100.5310, L7400.0280, L700.8000, L509.4001, L501.9520, L506.0400 #### [facility] [address] [place], [address] FSH and LHon 11-12-2022 FSH 6.6 mIU/mL Normal [facility] Comment on above: Order Comment: N Result Comment: NORMAL REFERENCE RANGES FEMALE FOLLICULAR 2.3 - 12.6 mIU/mL MID-CYCLE PEAK 5.2 - 17.5 mIU/mL LUTEAL 1.7 - 12.9 mIU/mL POST-MENOPAUSAL ON MHT 5.9 - 72.8 mIU/mL NOT ON MHT 12.7 - 132.2 mlU/mL MALE 0.7 - 10.8 mIU/mL Performed By: #### L 3100.5055, L3100.5420, L3300.1750, L3100.5310, L7400.0280, L700.8000, L509.4001, L501.9520, L506.0400 #### [facility] [address] [place], [address] LH 30.3 mIU/mL Normal [facility] Comment on above: Order Comment: N Result Comment: NORMAL REFERENCE RANGES FEMALE FOLLICULAR 1.9 - 26.2 mIU/mL MID-CYCLE PEAK 22.8 - 76.1 mIU/mL LUTEAL 0.6 - 16.6 mIU/mL POST-MENOPAUSAL ON MHT 1.1 - 52.4 mIU/mL NOT ON MHT 8.6 - 61.8 mIU/mL MALE 1.2 - 10.6 mIU/mL Performed By: #### L 3100.5055, L3100.5420, L3300.1750, L3100.5310, L7400.0280, L700.8000, L509.4001, L501.9520, L506.0400 #### [facility] [address] [place], [place], [id number] Progesterone Levelon 023 Progesterone 0.27 ng/mL Normal See Comment [facility] Comment on above: Result Comment: Prog esterone Reference Table: UNITS Female: Follicular 0.15 - 1.40 ng/mL Luteal 3.34 - 25.56 ng/mL Mid-luteal 4.44 - 28.03 ng/mL Postmenopausal 0.0 - 0.73 ng/mL : 1st Trimester 11.22 - 90.00 ng/mL 2nd Trimester 25.55 - 89.40 ng/mL 3rd Trimester 48.40 -422.50 ng/mL Performed By: #### L 3100.5055, L3100.5420, L3300.1750, L3100.5310, L7400.0280, L700.8000, L509.4001, L501.9520, L506.0400 #### [facility] [address] [place], [place], [id number] Prolactinon 11-12-2022 PROLACTIN 8.9 ng/mL Normal [facility] Comment on above: Order Comment: N Result Comment: NORMAL REFERENCE RANGES FEMALE NON- 2.2 - 30.3 ng/mL 8.1 - 347.6 ng/mL POST-MENOPAUSAL 0.7 - 31.5 ng/mL MALE 2.5 - 17.4 ng/mL Performed By: #### L 3100.5055, L3100.5420, L3300.1750, L3100.5310, L7400.0280, L700.8000, L509.4001, L501.9520, L506.0400 #### [facility] [address] [facility], [address] T4 Free Directon 11-12-2022 T4 FREE DIRECT 0.96 ng/dL Normal 0.76-1.46 [facility] Comment on above: Order Comment: N Performed By: #### L 3100.5055, L3100.5420, L3300.1750, L3100.5310, L7400.0280, L700.8000, L509.4001, L501.9520, L506.0400 #### [facility] [address] [facility], [address] Thyroid Stim Hormone (TSH)on 11-12-2022 TSH 1.07 uIU/mL Normal 0.358-3.74 [facility] Comment on above: Order Comment: N Performed By: #### L 3100.5055, L3100.5420, L3300.1750, L3100.5310, L7400.0280, L700.8000, L509.4001, L501.9520, L506.0400 #### [facility] [address] [facility], [address] hCG Titer Quant., Serumon HCG QUANT. < 1 Normal 1-3 [facility] Comment on above: Result Comment: hCG levels with Gestational Age Gestational Age hCG mIU/mL (IU/L) 0.2 - 1 week 5 - 50 1-2 weeks 50 - 500 2-3 weeks 100 - 5000 3-4 weeks 500 - 61685 4-5 weeks 1000 - 49509 5-6 weeks 16633 - 100,000 6-8 weeks 49604 - 200,000 2-3 months 73038 - 100,000 Performed By: #### L 3100.5055, L3100.5420, L3300.1750, L3100.5310, L7400.0280, L700.8000, L509.4001, L501.9520, L506.0400 #### [facility] [address] [place], [address] 12 Lead EKGon 09-08-2022 12 Lead EKG [facility] [address] [place] [address] 12 Lead EKG 09/07/22 2154 MR#: [id number] Acct: [id number] Name: HAM SOFIA Rep #: [id number] : 1990 31 From: Cameron Nuñez MD Attending Dr: Status: DEP ER Ordering Dr: Michelle Sen MD Date: 09/08/22 Location: ED Sex: F C Admitted: Test Reason : CP Blood Pressure : / mmHG Vent. Rate : 052 BPM Atrial Rate : 052 BPM P-R Int : 164 ms QRS Dur : 082 ms QT Int : 466 ms P-R-T Axes : 042 041 066 degrees QTc Int : 433 ms Sinus bradycardia Otherwise normal ECG Confirmed by GEGE BLACKWODO, CAMERON ([id number]), graphics editor MINGO SAENZ ([id number]) on 09/09/2022 12:02:18 PM Referred By: ER Physician Confirmed By:CAMERON NUÑEZ MD 09/09/22 1202 Date Cameron Nuñez MD CC: Dr. Michelle Sen MD; No Primary Care Physician Signed Normal [facility] Absolute lymphocyte counton 09-08-2022 Lymphocytes Auto (Unsp spec) [#/Vol] 2.27 10*3/uL 0.83-4.51 [facility] Work Phone: Basic Metabolic Profile (BMP )on 09-08-2022 BUN/CRE 11.4 RATIO Normal 08-01 [facility] Comment on above: Order Comment: 'TROP ' Serial specimen #1, #2 or #3: 1 Performed By: #### L 3100.5055, L3100.5420, L3300.1750, L3100.5310, L7400.0280, L700.8000, L509.4001, L501.9520, L506.0400 #### [facility] [address] [place], [address] CA,Total 9.5 mg/dL Normal 8.5-10.1 [facility] Comment on above: Order Comment: 'TROP ' Serial specimen #1, #2 or #3: 1 Performed By: #### L 3100.5055, L3100.5420, L3300.1750, L3100.5310, L7400.0280, L700.8000, L509.4001, L501.9520, L506.0400 #### [facility] [address] [place], [address] Chloride [Moles/Vol] 109 mmol/L High 98-107 [facility] Comment on above: Order Comment: 'TROP ' Serial specimen #1, #2 or #3: 1 Performed By: #### L 3100.5055, L3100.5420, L3300.1750, L3100.5310, L7400.0280, L700.8000, L509.4001, L501.9520, L506.0400 #### [facility] [address] [place], [address] CO2 [Moles/Vol] 26.0 mmol/L Normal 21.0-32.0 [facility] Comment on above: Order Comment: 'TROP ' Serial specimen #1, #2 or #3: 1 Performed By: #### L 3100.5055, L3100.5420, L3300.1750, L3100.5310, L7400.0280, L700.8000, L509.4001, L501.9520, L506.0400 #### [facility] [address] [place], [address] Creatinine [Mass/Vol] 0.96 mg/dL Normal 0.55-1.02 [facility] Comment on above: Order Comment: 'TROP ' Serial specimen #1, #2 or #3: 1 Result Comment: The validity of the calculated GFR GFRAA in patients over 70 years has not been determined. Clinical correlation is essential. Performed By: #### L 3100.5055, L3100.5420, L3300.1750, L3100.5310, L7400.0280, L700.8000, L509.4001, L501.9520, L506.0400 #### [facility] [address] [place], [address] ECRCL 69.59 ml/min Normal [facility] Comment on above: Order Comment: 'TROP ' Serial specimen #1, #2 or #3: 1 Performed By: #### L 3100.5055, L3100.5420, L3300.1750, L3100.5310, L7400.0280, L700.8000, L509.4001, L501.9520, L506.0400 #### [facility] [address] [place], [address] EST GFR - AA 86 mL/min Normal >60 [facility] Comment on above: Order Comment: 'TROP ' Serial specimen #1, #2 or #3: 1 Result Comment: Afri can [place] GFR Calc Performed By: #### L 3100.5055, L3100.5420, L3300.1750, L3100.5310, L7400.0280, L700.8000, L509.4001, L501.9520, L506.0400 #### [facility] [address] [place], [address] GAP 3 Low 5-15 [facility] Comment on above: Order Comment: 'TROP ' Serial specimen #1, #2 or #3: 1 Performed By: #### L 3100.5055, L3100.5420, L3300.1750, L3100.5310, L7400.0280, L700.8000, L509.4001, L501.9520, L506.0400 #### [facility] [address] [place], [address] GFR/1.73 sq M.predicted among non-blacks MDRD (S/P/Bld) [Vol rate/Area] 71 mL/min/{1.73_m2} Normal >60 [facility] Comment on above: Order Comment: 'TROP ' Serial specimen #1, #2 or #3: 1 Result Comment: Non- GFR Calc Performed By: #### L 3100.5055, L3100.5420, L3300.1750, L3100.5310, L7400.0280, L700.8000, L509.4001, L501.9520, L506.0400 #### [facility] [address] [place], [address] Glucose [Mass/Vol] 114 mg/dL High 74-106 [facility] Comment on above: Order Comment: 'TROP ' Serial specimen #1, #2 or #3: 1 Result Comment: Fast ing Glucose result from 100 to 125 mg/dL suggests IMPAIRED HOMEOSTASIS per A.D.A. criteria. Performed By: #### L 3100.5055, L3100.5420, L3300.1750, L3100.5310, L7400.0280, L700.8000, L509.4001, L501.9520, L506.0400 #### [facility] [address] [place], [address] Potassium [Moles/Vol] 5.1 mmol/L Normal 3.5-5.1 [facility] Comment on above: Order Comment: 'TROP ' Serial specimen #1, #2 or #3: 1 Result Comment: Mode rate Hemolysis, Result may be falsely increased. Performed By: #### L 3100.5055, L3100.5420, L3300.1750, L3100.5310, L7400.0280, L700.8000, L509.4001, L501.9520, L506.0400 #### [facility] [address] [place], [address] Sodium [Moles/Vol] 138 mmol/L Normal 136-145 [facility] Comment on above: Order Comment: 'TROP ' Serial specimen #1, #2 or #3: 1 Performed By: #### L 3100.5055, L3100.5420, L3300.1750, L3100.5310, L7400.0280, L700.8000, L509.4001, L501.9520, L506.0400 #### [facility] [address] [place], [place], [address] [phone] Urea nitrogen [Mass/Vol] 11 mg/dL Normal 7-18 [facility] Comment on above: Order Comment: 'TROP ' Serial specimen #1, #2 or #3: 1 Performed By: #### L 3100.5055, L3100.5420, L3300.1750, L3100.5310, L7400.0280, L700.8000, L509.4001, L501.9520, L506.0400 #### [facility] [address] [place], [place], [address] [phone] Basophil percentageon 2021 Basophils/100 WBC (Bld) 0.2 % 0-1 [facility] Work Phone: [phone] Chloride [Moles/Vol] 109 mmol/L 98-107 [facility] Work Phone: [phone] Eosinophils/100 WBC (Bld) 0.1 % 0-5 [facility] Work Phone: [phone] Glucose [Mass/Vol] 114 mg/dL 74-106 [facility] Work Phone: Comment on above: Fasting Glucose resu lt from 100 to 125 mg/dL suggests IMPAIRED HOMEOSTASIS per A.D.A. criteria. Neutrophils (Bld) [#/Vol] 10.3 10*3/uL 2.0-7.7 [facility] Work Phone: [phone] Neutrophils/100 WBC (Bld) 76.1 % 47-70 [facility] Work Phone: [phone] Potassium [Moles/Vol] 5.1 mmol/L 3.5-5.1 [facility] Work [phone] Comment on above: Moderate Hemolysis, Result may be falsely increased. Sodium [Moles/Vol] 138 mmol/L 136-145 [facility] Work Phone: [phone] WBC (Bld) [#/Vol] 13.5 10*3/uL 4.4-11.0 [facility] Work Phone: [phone] Blood erythrocytes count (nu mber/volume)on 09-08-2022 RBC (Bld) [#/Vol] 4.14 10*6/uL 4.2-5.4 [facility] Work Phone: [phone] Blood hemoglobin measurement (mass/volume)on 09-08-2022 Hemoglobin (Bld) [Mass/Vol] 11.6 g/dL 12.0-15.0 [facility] Work Phone: [phone] Blood lymphocytes/100 leukoc yteson 09-08-2022 Lymphocytes/100 WBC (Bld) 16.8 % 19-41 [facility] Work Phone: [phone] Blood monocytes/100 leukocyt eson 09-08-2022 Monocytes/100 WBC (Bld) 6.4 % 0-10 [facility] Work Phone: [phone] Blood platelet mean volumeon 09-08-2022 Platelet mean volume (Bld) [Entitic vol] 9.6 fL 6.2-12.0 [facility] Work Phone: [phone] CBC W/Diff, Automatedon 08-14 Absolute Lymph 2.27 X10 3/uL Normal 0.83-4.51 [facility] Comment on above: Performed By: #### L 3100.5055, L3100.5420, L3300.1750, L3100.5310, L7400.0280, L700.8000, L509.4001, L501.9520, L506.0400 #### [facility] [address] [place], [address] Absolute Neut 10.3 X10 3/uL High 2.0-7.7 [facility] Comment on above: Performed By: #### L 3100.5055, L3100.5420, L3300.1750, L3100.5310, L7400.0280, L700.8000, L509.4001, L501.9520, L506.0400 #### [facility] [address] [place], [address] Basophils/100 WBC (Bld) 0.2 % Normal 0-1 [facility] Comment on above: Performed By: #### L 3100.5055, L3100.5420, L3300.1750, L3100.5310, L7400.0280, L700.8000, L509.4001, L501.9520, L506.0400 #### [facility] [address] [place], [place], [id number] (242 Eosinophils/100 WBC (Bld) 0.1 % Normal 0-5 [facility] Comment on above: Performed By: #### L 3100.5055, L3100.5420, L3300.1750, L3100.5310, L7400.0280, L700.8000, L509.4001, L501.9520, L506.0400 #### [facility] [address] [place], [place], [id number] (935) Erythrocyte distribution width (RBC) [Ratio] 12.5 % Normal 11.6-14.6 [facility] Comment on above: Performed By: #### L 3100.5055, L3100.5420, L3300.1750, L3100.5310, L7400.0280, L700.8000, L509.4001, L501.9520, L506.0400 #### [facility] [address] [place], [address] Hematocrit (Bld) [Volume fraction] 35.4 % Low 37-47 [facility] Comment on above: Performed By: #### L 3100.5055, L3100.5420, L3300.1750, L3100.5310, L7400.0280, L700.8000, L509.4001, L501.9520, L506.0400 #### [facility] [address] [place], [address] Hemoglobin (Bld) [Mass/Vol] 11.6 g/dL Low 12.0-15.0 [facility] Comment on above: Performed By: #### L 3100.5055, L3100.5420, L3300.1750, L3100.5310, L7400.0280, L700.8000, L509.4001, L501.9520, L506.0400 #### [facility] [address] [place], [address] (341) IG% 0.400 Normal 0.0-0.9 [facility] Comment on above: Result Comment: IG% - Immature Granulocytes (promyelocytes, myelocytes and metamyelocytes) > 1% indicates that a LEFT SHIFT is Present. Performed By: #### L 3100.5055, L3100.5420, L3300.1750, L3100.5310, L7400.0280, L700.8000, L509.4001, L501.9520, L506.0400 #### [facility] [address] [place], [address] Lymphocytes/100 WBC (Bld) 16.8 % Low 19-41 [facility] Comment on above: Performed By: #### L 3100.5055, L3100.5420, L3300.1750, L3100.5310, L7400.0280, L700.8000, L509.4001, L501.9520, L506.0400 #### [facility] [address] [place], [address] MCH (RBC) [Entitic mass] 28.0 pg Normal 27.0-32.0 [facility] Comment on above: Performed By: #### L 3100.5055, L3100.5420, L3300.1750, L3100.5310, L7400.0280, L700.8000, L509.4001, L501.9520, L506.0400 #### [facility] [address] [place], [address] MCHC (RBC) [Mass/Vol] 32.8 g/dL Normal 32-36 [facility] Comment on above: Performed By: #### L 3100.5055, L3100.5420, L3300.1750, L3100.5310, L7400.0280, L700.8000, L509.4001, L501.9520, L506.0400 #### [facility] [address] [place], [address] MCV (RBC) [Entitic vol] 85.5 fL Normal 81-99 [facility] Comment on above: Performed By: #### L 3100.5055, L3100.5420, L3300.1750, L3100.5310, L7400.0280, L700.8000, L509.4001, L501.9520, L506.0400 #### [facility] [address] [place], [address] Monocytes/100 WBC (Bld) 6.4 % Normal 0-10 [facility] Comment on above: Performed By: #### L 3100.5055, L3100.5420, L3300.1750, L3100.5310, L7400.0280, L700.8000, L509.4001, L501.9520, L506.0400 #### [facility] [address] [place], [address] Neutrophils/100 WBC (Bld) 76.1 % High 47-70 [facility] Comment on above: Performed By: #### L 3100.5055, L3100.5420, L3300.1750, L3100.5310, L7400.0280, L700.8000, L509.4001, L501.9520, L506.0400 #### [facility] [address] [place], [address] Nucleated RBC (Bld) [#/Vol] 0 10*3/uL Normal 0-5 [facility] Comment on above: Performed By: #### L 3100.5055, L3100.5420, L3300.1750, L3100.5310, L7400.0280, L700.8000, L509.4001, L501.9520, L506.0400 #### [facility] [address] [place], [address] Platelet mean volume (Bld) [Entitic vol] 9.6 fL Normal 6.2-12.0 [facility] Comment on above: Performed By: #### L 3100.5055, L3100.5420, L3300.1750, L3100.5310, L7400.0280, L700.8000, L509.4001, L501.9520, L506.0400 #### [facility] [address] [place], [address] Platelets (Bld) [#/Vol] 271 10*3/uL Normal 150-450 [facility] Comment on above: Performed By: #### L 3100.5055, L3100.5420, L3300.1750, L3100.5310, L7400.0280, L700.8000, L509.4001, L501.9520, L506.0400 #### [facility] [address] [place], [address] RBC (Bld) [#/Vol] 4.14 10*6/uL Low 4.2-5.4 [facility] Comment on above: Performed By: #### L 3100.5055, L3100.5420, L3300.1750, L3100.5310, L7400.0280, L700.8000, L509.4001, L501.9520, L506.0400 #### [facility] [address] [facility], [address] RDW SD 38.5 fl Normal 35.1-43.9 [facility] Comment on above: Performed By: #### L 3100.5055, L3100.5420, L3300.1750, L3100.5310, L7400.0280, L700.8000, L509.4001, L501.9520, L506.0400 #### [facility] [address] [facility], [address] WBC (Bld) [#/Vol] 13.5 10*3/uL High 4.4-11.0 [facility] Comment on above: Performed By: #### L 3100.5055, L3100.5420, L3300.1750, L3100.5310, L7400.0280, L700.8000, L509.4001, L501.9520, L506.0400 #### [facility] [address] [facility], [address] Chest PA and Lateralon 09-08 Chest PA and Lateral [facility] Services [address] [place] [address] Chest PA and Lateral MR#: [id number] Acct: [id number] Name: HAM SOFIA Rep #: [id number] : 1990 F 31 From: Stefan Meehan MD PCP: Care Physician,No Primary Status: [facility] ER Study: Chest PA and Lateral Date of Exam: 09/08/22 Exam# [id number] Ordering Dr: Michelle Sen MD EXAM: XR CHEST, 2 VIEWS CLINICAL INDICATION: cp TECHNIQUE: Frontal and lateral views of the chest. This report was created using [employer] report generation technology. COMPARISON: None. FINDINGS: LUNGS AND PLEURAL SPACES: Unremarkable. No consolidation or edema. No pneumothorax. No effusion. HEART: Unremarkable. Cardiac silhouette not enlarged. MEDIASTINUM: Central airways and mediastinal contour are unremarkable. BONES/JOINTS: Unremarkable. SOFT TISSUES: Unremarkable. RAD/Chest PA and Lateral IMPRESSION: No radiographic evidence of acute cardiopulmonary disease. Electronically Signed: Stefan Meehan MD at 2:45 EST , CC: Dr. Michelle Sen MD; No Primary Care Physician Record Press Tender: Signed Normal [facility] Determination of erythrocyte mean corpuscular volume (MCV)on 09-08-2022 MCV (RBC) [Entitic vol] 85.5 fL 81-99 [facility] Work Phone: Emergency Department Summary on 09-08-2022 Emergency Department Summary [facility] Medical Records Department [address] [place] [address] Emergency Department Summary 09/08/22 MR#: [id number] Acct: [id number] Name: HAM SOFIA Rep #: [id number] : 1990 31 From: Michelle Sen MD PCP: Care Physician,No Primary Status:DEP ER Location: ED HPI History of Present Illness Chief Complaint: Chest Pain Informant: patient Onset/Context/Timing Onset: Yesterday Activity at onset: gradual Quality: Positive for Heaviness Location: Substernal Current Severity: Gone Maximum Severity: Severe Narrative Narrative: Patient present secondary to chest pain. She states around 6 PM she had over to her sister's house. She had some central chest pressure that she thought was reflux. Pain continued to worsen over the next several hours and wrapped under each breast. She states she difficulty breathing. She vomited and then felt better. PFSH PFSH Medical History no medical history no medical history Home Medications Omeprazole 1 tab PO DAILY Check with primary doctor 03/12/19 [History Last Taken 03/11/19 15:00] Prenatabs FA 1 tab PO DAILY Check with primary doctor 03/12/19 [History Last Taken 03/11/19 14:00] Vitamin D 1 tab PO DAILY 03/12/19 [History Last Taken 03/11/19 14:00] omeprazole 20 mg capsule,delayed release 20 mg PO DAILY 4 weeks #28 caps 09/08/22 [Rx Last Taken Unknown] Allergy/AdvReac Type Severity Reaction Status Date / Time No Known Allergies Allergy Verified 03/12/19 00:43 Family History other other (Heart disease in grandfather.) Social History Smoking Status: Never smoker ROS ROS ED Constitutional Constitutional ED: Denies chills or fever(s) Eyes Eyes: Denies change in vision or discharge from eye(s) ENT ENT ED: Denies discharge from eye(s), rhinorrhea or sore throat Cardiovascular Cardiovascular: Reports chest pain; Denies palpitations Respiratory/Chest Respiratory/Chest: Reports dyspnea; Denies cough Gastrointestinal Gastrointestinal: Reports nausea and vomiting; Denies abdominal pain or diarrhea Genitourinary Genitourinary ED: Denies dysuria Musculoskeletal Musculoskeletal: Denies back pain or extremity pain Integumentary Denies Abrasions or rash Neurologic Neurologic: Denies headache(s) or weakness Allergic/Immunologic Allergic/Immunologic ED: Denies lip swelling or urticaria EXAM Physical Exam Const Vital Signs: 09/07/22 21:43 09/07/22 21:43 09/08/22 00:07 Temperature 97.0 F L 97.0 F L Temperature Source Temporal Temporal Pulse Rate 63 63 83 Respiratory Rate 22 H 22 H 16 Respiratory Effort Respiratory Pattern Blood Pressure 162/86 H 162/86 H 149/89 H Blood Pressure Mean 111 111 109 Pulse Ox 100 100 100 Oxygen Delivery Method Room Air Room Air Room Air 09/08/22 00:07 09/08/22 02:40 Temperature Temperature Source Pulse Rate 61 Respiratory Rate 18 Respiratory Effort Normal Non-Labored Respiratory Pattern Normal Blood Pressure 132/78 H Blood Pressure Mean 96 Pulse Ox 96 Oxygen Delivery Method Room Air Positive well nourished and well developed General Appearance ED: well developed HEENT Reports normocephalic and head/scalp atraumatic Eyes PERRL and EOMs intact bilaterally Neck supple Chest Wall inspection of chest normal and palpation of chest normal Resp normal respiratory effort and clear to auscultation bilaterally Cardio regular rate and regular rhythm GI normal to inspection, nondistended, normoactive bowel sounds Palpation: soft Extremity normal to inspection Neuro oriented x3 and no sensory deficits noted Sensorium / Orientation: alert Motor Exam: strength 5/5 throughout Psych mental status grossly normal Skin no rashes or lesions noted Heart Score History: Slightly/Non-Suspicio us ECG: Normal Age: Risk Factors: No Risk Factors Troponin: Score: 0 MDM MDM MDM Narrative Medical decision making narrative: EKG, chest x-ray, lab work obtained. Lab Data Attestation: I reviewed the patient's lab results. Labs: Laboratory Results - last 24 hr 09/08/22 09/08/22 01:19 01:19 WBC 13.5 H RBC 4.14 L Hgb 11.6 L Hct 35.4 L MCV 85.5 MCH 28.0 MCHC 32.8 RDW Std Deviation 38.5 RDW Coeff of Rosario 12.5 Plt Count 271 MPV 9.6 Immature Gran % (Auto) 0.400 Neut % (Auto) 76.1 H Lymph % (Auto) 16.8 L [place] % (Auto) 6.4 Eos % (Auto) 0.1 Baso % (Auto) 0.2 Absolute Neuts (auto) 10.3 H Absolute Lymphs (auto) 2.27 Nucleated RBC % 0 Sodium 138 Potassium 5.1 Chloride 109 H Carbon Dioxide 26.0 Anion Gap 3 L BUN 11 Creatinine 0.96 Estim Creat Clear Calc 69.59 Est GFR (MDRD) Af Amer 86 Est GFR (MDRD) Non-Af 71 BUN/Creatinin (more content not included)... Normal [facility] Hematocrit Auto (Bld) [Volum e fraction]on 09-08-2022 Hematocrit (Bld) [Volume fraction] 35.4 % 37-47 [facility] Work Phone: [phone] 09-08-2022 TROPONIN-I HS 12 pg/mL Normal 3.0-54.0 [facility] Comment on above: Order Comment: 'TROP ' Serial specimen #1, #2 or #3: 1 Result Comment: Heide carballo Note: New Test Units and Gender Specific Reference Ranges. For more information see Policy Stat Procedure [place] High Sensitivity Troponin (TNIH) and attachments. Performed By: #### L 3100.7109, L3100.5420, L3300.1750, L3100.5310, L7400.0280, L700.8000, L509.4001, L501.9520, L506.0400 #### [facility] [place], [address] Laboratory - Chemistry and C hemistry - challengeon 09-08-2022 CO2 [Moles/Vol] 26.0 mmol/L 21.0-32.0 [facility] Work Phone: Urea nitrogen/Creatinin e [Mass ratio] 11.4 mg/mg 10-20 [facility] Work Phone: Laboratory - Hematology and Cell countson 09-08-2022 Erythrocyte distribution width (RBC) [Entitic vol] 38.5 fL 35.1-43.9 [facility] Work Phone: Erythrocyte distribution width (RBC) [Ratio] 12.5 % 11.6-14.6 [facility] Work Phone: Immature granulocytes/100 WBC (Bld) 0.400 % 0.0-0.9 [facility] Work Phone: Comment on above: IG% - Immature Granu locytes (promyelocytes, myelocytes and metamyelocytes) > 1% indicates that a LEFT SHIFT is Present. MCH (RBC) [Entitic mass] 28.0 pg 27.0-32.0 [facility] Work Phone: Nucleated RBC/100 WBC (Bld) [Ratio] 0 % 0-5 [facility] Work Phone: MCHC Auto (RBC) [Mass/Vol]on 09-08-2022 MCHC (RBC) [Mass/Vol] 32.8 g/dL 32-36 [facility] Work Phone: No Panel Informationon 09-08 Estimated Creatinine Clearance Calc 69.59 ml/min [facility] Work Phone: Estimated GFR (MDRD) Amer 86 mL/min >60 [facility] Work Phone: Comment on above: GFR Calc Estimated GFR (MDRD) Non-Af Amer 71 mL/min >60 [facility] Work Phone: Comment on above: Non- GFR Calc Troponin I High Sensitivity 12 pg/mL 3.0-54.0 [facility] Work Phone: Comment on above: Please Note: [place] t Units and Gender Specific Reference Ranges. For more information see Policy Stat Procedure [place] High Sensitivity Troponin (TNIH) and attachments. Platelets bldon 09-08-2022 Platelets (Bld) [#/Vol] 271 10*3/uL 150-450 [facility] Work Phone: Serum or plasma calcium orlin urement (mass/volume)on 09-08-2022 Calcium [Mass/Vol] 9.5 mg/dL 8.5-10.1 [facility] Work Phone: Serum or plasma creatinine m easurement (mass/volume)on 09-08-2022 Creatinine [Mass/Vol] 0.96 mg/dL 0.55-1.02 [facility] Work Phone: Comment on above: The validity of the calculated GFR & GFRAA in patients over 70 years has not been determined. Clinical correlation is essential. Serum or plasma urea nitroge n measurement (mass/volume)on 09-08-2022 Urea nitrogen [Mass/Vol] 11 mg/dL 7-18 [facility] Work Phone: Thin prep Papanicolaou smear with manual screeningon 09-08-2022 Thin prep Papanicolaou smear with manual screening 3 5-15 [facility] Work Phone: Chana 06-26-2021 CNPN Telephone (UCWSTR) HAM SOFIA ([id number]) 1990 F Date Time Provider Department 06/26/21 PETRA DHILLON [facility] During your visit today, we recorded the following information about you: Petra Dhillon PA-C 06/26/2021 2:08 PM Signed Left message for patient regarding positive COVID results. Please review standard instructions, home isolation, and symptom management. Advise patient to closely monitor symptoms. For worrisome symptoms, call our office or seek care sooner in ER. Petra Dhillon PA-C 06/26/2021 Robert Currie LPN 06/26/2021 2:58 PM Signed Patient returned call and went over results, notes from urgent care provider with understanding. Allergies As of Date: 06/26/2021 (No Known Allergies) Date Reviewed: 06/25/2021 Reviewed by: Trudy Mares - Fully Assessed Reason for Visit: Results [95] Problem List As Of Date: 06/26/2021 (None) Encounter Status:Closed by ROBERT CURRIE LPN on 06/26/21 [facility] CNOVon 06-25-2021 CNOV Office Visit (UCWSTR ) HAM SOFIA ([id number]) 1990 F Date Time Provider Department 06/25/21 2:00 PM DEAN CASEY [facility] During your visit today, we recorded the following information about you: Temperature Pulse Respiration Blood pressure 100.4 degrees 88/minute 16/minute 132/80 Weight 77.1 kg Dean Casey MD 06/25/2021 2:59 PM Signed Patient presents with: Cough: nasal congestion, drainage, fever, headache and bodyaches x 4 days HPI: Feeling sick for 5 days. COVID exposure at work last week. Positive symptoms: Cough, Nasal Congestion, Rhinorrhea, Fever, Body Aches, Headache, Fatigue, Negative symptoms: Shortness of breath, Vomiting, Diarrhea, loss of taste/smell, MEDICATIONS: No current outpatient medications on file. No current facility-administered medications for this visit. ALLERGIES: ALLERGIES No Known Allergies VITALS: BP 132/80 Pulse 88 Temp (!) 38 ?C (100.4 ?F) Resp 16 Wt 77.1 kg (170 lb) SpO2 99% PHYSICAL EXAM: GEN: mildly ill appearing HEENT: PERRL, EOMI, conjunctiva clear Sinuses: non-tender frontal sinus, non-tender maxillary sinuses Throat: moist mucous membranes, mild erythema, no exudate Neck: supple, no thyromegaly, no lymphadenopathy HEART: regular rate and rhythm, no murmurs LUNGS: clear to auscultation, no wheezes or crackles, no increased WOB ASSESSMENT/PLAN: 1. URI, acute - ICD9: 465.9, ICD10: J06.9 (primary diagnosis) 2. Exposure to confirmed case of COVID-19 - ICD9: , ICD10: Z20.822 viral URI- suspect COVID-19. - Discussed supportive care treatment with home isolation, rest, cold medicine, and analgesia. - Red flags to seek further treatment include chest pain, shortness of breath, and lethargy; in the ER if severe. COVID-19 testing - 2019 CORONAVIRUS close contacted quarantine if positive. Her is not feeling well already. Dean Casey MD Referring Provider: SELF [200] Allergies As of Date: 06/25/2021 (No Known Allergies) Date Reviewed: 06/25/2021 Reviewed by: Trudy Mares - Fully Assessed Reason for Visit: Cough [28] Cmt: nasal congestion, drainage, fever, headache and bodyaches x 4 days Primary Visit Diagnosis:URI, acute [J06.9] Other Visit Diagnosis:Exposure to confirmed case of COVID-19 [Z20.822] Order(s):2019 CORONAVIRUS [SQCOVID] Order #: [id number] FUTURE Problem List As Of Date: 06/25/2021 (None) Letter Text Encounter Status:Closed by DEAN CASEY on 06/25/21 [facility] Coronavirus 2019on 1 SARS-CoV-2 (COVID-19) RNA BARBI+probe Ql (Unsp spec) UPPER RESPIRATORY TRACT SWAB Normal [facility] Comment on above: Performed By: #### C OVID #### [place] [id number] SARS-CoV-2 (COVID-19) RNA BARBI+probe Ql (Unsp spec) Positive for COVID19 (SARS CoV2) by RT-PCR or equivalent method. Critically abnormal Negative for COVID19 (SARS CoV2) by RT-PCR or equivalent method. [facility] Comment on above: Result Comment: This test was developed and its performance characteristics determined by [facility] [place]. This test has been authorized by FDA under an Emergency Use Authorization (EUA). This test has been validated in accordance with the FDA's Guidance Document Policy for Diagnostics Testing in Laboratories Certified to Perform High Complexity Testing under CLIA prior to Emergency use Authorization for Coronavirus Disease 2019 during the Public Health Emergency issued on December 11, 2019. Test performed by [facility], [facility] [place], [address] [place] [id number]. Performed By: #### C OVID #### [place] [address] Vital Signs Date Time Vital Sign Value Performing Clinician Kapil aldana 09-08-2022 02:40-0500 Diastolic blood pressure 78 mm[Hg] [facility] Work Phone: 09-08-2022 02:40-0500 Heart rate 61 /min [facility] Work Phone: 09-08-2022 02:40-0500 Respiratory rate 18 /min [facility] Work Phone: 09-08-2022 02:40-0500 SaO2% (BldA) [Mass fraction] 96 % [facility] Work Phone: 09-08-2022 02:40-0500 Systolic blood pressure 132 mm[Hg] [facility] Work Phone: 11-26-2022 21:43-0500 Body height 160.02 cm [facility] Work Phone: 09-07-2022 21:43-0500 Body mass index (BMI) [Ratio] 32.3 kg/m2 [facility] Work Phone: 09-07-2022 21:43-0500 Body temperature 97 [degF] [facility] Work Phone: 09-07-2022 21:43-0500 Body weight 82.9 kg [facility] Work Phone: Encounters Encounter Date Encounter Type Care Provider Facility Start: 11-12-2022 ambulatory No Primary Car e Physician Facility:[facility] Start: 09-07-2022 End: 09-08-2022 Emergency department patient visit No Primary Care Physician Facility:[facility] Start: 09-07-2022 End: 09-08-2022 Emergency department patient visit [facility]-Emergency Department Procedures Date Procedure Procedure Detail Performing Clinician Start: 09-08-2022 Plain chest X-ray Plan of Treatment Date Care Activity Detail Author Patient Education ED Chest Pain, Noncardi ac [facility] Work Phone: Patient referral [facility] Work Phone: Payers Date Payer Category Payer Self-pay [id number] 2022 Unknown [id number] Unknown ANTHEM [id number] Unknown [facility] [id number] Unknown [id number] Unknown [id number] Social History Date Type Detail Facility Start: 09-08-2022 Tobacco smoking status NHIS Unknown if ever smoked [facility] Work Phone: Start: 1990 Sex Assigned At Female [facility] Work Phone: NEGATED: Highlighted row [facility] Work Phone: Mental Status Date Assessment Result Facility 09-08-2022 Cognitive function Voice/Name [facility] Work Phone: Progress note 06-25-2021 Note Date & Type Note Facility 06-25-2021 Note HNO ID: [id number] Author: Dean Casey MD Service: ? Author Type: Physician Type: Progress Notes Filed: 06/25/2021 2:59 PM Note Text: Patient presents with: Cough: nasal congestion, drainage, fever, headache and bodyaches x 4 days HPI: Feeling sick for 5 days. COVID exposure at work last week. Positive symptoms: Cough, Nasal Congestion, Rhinorrhea, Fever, Body Aches, Headache, Fatigue, Negative symptoms: Shortness of breath, Vomiting, Diarrhea, loss of taste/smell, MEDICATIONS: No current outpatient medications on file. No current facility-administered medications for this visit. ALLERGIES: ALLERGIES No Known Allergies VITALS: BP 132/80 Pulse 88 Temp (!) 38 ?C (100.4 ?F) Resp 16 Wt 77.1 kg (170 lb) SpO2 99% PHYSICAL EXAM: GEN: mildly ill appearing HEENT: PERRL, EOMI, conjunctiva clear Sinuses: non-tender frontal sinus, non-tender maxillary sinuses Throat: moist mucous membranes, mild erythema, no exudate Neck: supple, no thyromegaly, no lymphadenopathy HEART: regular rate and rhythm, no murmurs LUNGS: clear to auscultation, no wheezes or crackles, no increased WOB ASSESSMENT/PLAN: 1. URI, acute - ICD9: 465.9, ICD10: J06.9 (primary diagnosis) 2. Exposure to confirmed case of COVID-19 - ICD9: , ICD10: Z20.822 viral URI- suspect COVID-19. - Discussed supportive care treatment with home isolation, rest, cold medicine, and analgesia. - Red flags to seek further treatment include chest pain, shortness of breath, and lethargy; in the ER if severe. COVID-19 testing - 2019 [facility] close contacted quarantine if positive. Her is not feeling well already. Dean Casey MD [facility] Evaluation note Note Date & Type Note Facility Evaluation note No assessment information availa daria [facility] Work Phone: Summary Purpose Family History No Family History Records FoundNo Family History Records Found Advance Directives No Advanced Directives Records Found Advance Directive Response Recorded Date/ Time Living Will No September 08 12:07am Power of Rubber Goods Supervisor No September 08, 2022 12:07am Chief Complaint and Reason for Visit Chief Complaint CHEST PAIN Additional Source Comments INFORMATION SOURCE (unrecogn ized section and content) DATE CREATED AUTHOR 11/07/2021 [facility] DATE CREATED AUTHOR AUTHOR'S ORGANIZ ATION 11/19/2022 [facility] Goals (unrecognized section and content) Goals may be documented in a n alternate section FOR RECORDS PERTAINING TO PATIENTS WHO ARE OR HAVE BEEN ENROLLED IN A CHEMICAL DEPENDENCY/SUBSTANCEABUSE PROGRAM, SOME INFORMATION MAY BE OMITTED. This clinical summary was aggregated from multiple sources. Caution should be exercised in using it in the provision of clinical care. This summary normalizes information from multiple sources, and as a consequence, information in this document may materially change the coding, format and clinical context of patient data. In addition, data may be omitted in some cases. CLINICAL DECISIONS SHOULD BE BASED ON THE PRIMARY CLINICAL RECORDS. [employer] [facility]. provides no warranty or guarantee of the accuracy or completeness of information in this document.
[2025-08-05 07:49] LABS: AST(SGOT) 19 U/L (<=31); Alanine Aminotransfer ALT/SGPT 14 U/L (<=34); Albumin, Serum 4.5 g/dL (3.5-5.0); Alkaline Phosphatase 76 U/L (35-104); Anion Gap 11 (5-15); BUN 11 mg/dL (4-19); BUN/Creat Ratio 11.0 RATIO (10-20); Calcium,Total 9.2 mg/dL (7.6-11.0); Carbon Dioxide 25.4 mmol/L (21.0-32.0); Chloride 105 mmol/L (98-108); Cholesterol 148 mg/dL (<=200); Globulin 2.8 g/dL (2.2-4.2); Glucose 103 mg/dL (70-99); Low Density Lipoprotein Calc. 89 mg/dL; Potassium 3.7 mmol/L (3.3-5.1); Triglycerides 112 mg/dL; Very Low Density Lipoprotein 22 mg/dL (5-40); cholesterol:hdl ratio screen 3.80
== END | disposition home or self-care (01) ==
LOC: LAB 06:49
PROVIDERS: PCP Nurse Practitioner Family; Referring Provider Nurse Practitioner Family; Visit Provider Nurse Practitioner Family
DX: Z00.00 Encounter for general adult medical examination without abnormal findings (principal); Z13.1 Encounter for screening for diabetes mellitus
CPT/HCPCS: 36415; 80053; 80061